=== PATIENT | female | born 1940 | race Caucasian/White ===

== ENCOUNTER → 2018-01-09 10:21 | Outpatient (CLI) | payer MEDICARE, OTHER, SELFPAY ==
--- NOTE | 2018-01-09 10:28 | MM_ITS ---
. MM Dig screening mamm BI w/CAD CAD Screening ORDERING PHYSICIAN : Teddy Evans MD PATIENT AGE: 77 years GENDER: Femal INDICATION: Routine screening. 77-year-old. No hormones. No new complaints Family history. Paternal aunt with breast cancer TECHNIQUE: Standard CC and MLO images were obtained. R2 CAD reviewed. COMPARISON: Previous mammograms: December 2016; November 20142015October 2012 FINDINGS: Moderate density breast for age. We continue see stable mild asymmetry but no significant new findings. Scattered benign calcifications bilateral RIGHT BREAST: No significant new findings The asymmetric area of what appears to be fibroglandular density towards lateral right breast is remain stable since multiple previous studies dating back to 2012 & 2011 LEFT BREAST:Left breast. Asymmetric area of minor tissue towards axillary tail is been present since 2011. . Metallic marker from Previous percutaneous biopsy at 1:00 left breast performed in 2009 noted. Associated mild architectural in this region stable IMPRESSION: ===== Stable bilateral mammogram with no significant new findings. Moderately dense breasts for age. Bilateral follow-up one year recommended BI-RADS Category: 2 Benign Finding(s) RECOMMENDED FOLLOW-UP: 1YR - 1 YEAR FOLLOW-UP (A letter has been sent to the patient regarding results of the study.)
== END ==
PROVIDERS: Family Provider Internal Medicine Adolescent Medicine; PCP Internal Medicine Adolescent Medicine; Visit Provider Internal Medicine Adolescent Medicine
DX: Z12.31 Encounter for screening mammogram for malignant neoplasm of breast (principal)
CPT/HCPCS: 77067

== ENCOUNTER → 2018-03-14 12:14 | Outpatient (CLI) | payer MEDICARE, OTHER, SELFPAY ==
--- NOTE | 2018-03-14 12:22 | XR_ITS ---
XR shoulder LT min 2V COMPARISON: Right shoulder 07/29/2017 HISTORY: Left shoulder pain TECHNIQUE: 3 views left shoulder FINDINGS: There is mild spurring of the AC joint superiorly and inferiorly. Humeral head rides somewhat high in the glenoid and there is mild spurring the greater tuberosity and the combination of findings suggest a mild disposition to impingement syndrome. There is a somewhat prominent bicipital groove with mildly sclerotic borders. There are no soft tissue calcifications. IMPRESSION: Mild degenerative changes of the AC joint and humeral head with a combination suggesting predisposition to some degree of impingement syndrome
== END ==
PROVIDERS: PCP Family Medicine; Visit Provider Family Medicine
DX: M25.512 Pain in left shoulder (principal)
CPT/HCPCS: 73030

== ENCOUNTER → 2018-03-25 16:04 | Outpatient (CLI) | payer MEDICARE, OTHER, SELFPAY ==
--- NOTE | 2018-03-25 16:08 | XR_ITS ---
EXAM: XR lumbar spine min 4V HISTORY: ITS.REASON: LOW BACK PAIN ORDERING PHYSICIAN: Nicol Lopez MD PATIENT AGE: 77 years COMPARISON: 01/19/2011 FINDINGS: There has been kyphoplasty at T11, T12, and L2. There is kyphosis at T11 and T12 with mild old wedge compression changes. Anterior osteophytes are present at L2 and L3. There is 4 mm anterolisthesis of L4 with degenerative disc disease at L4-L5. Transitional segment is present at the lumbosacral junction with anterior osteophytes. There are facet hypertrophic changes at L4-L5 and S1. IMPRESSION: 1. Prior kyphoplasty at T11-T12 and L2 with mild wedging of T11 and T12. 2. Lumbar spondylosis with degenerative disc disease, facet arthritic change and osteophyte formation as described above. 3. No acute finding
== END ==
PROVIDERS: PCP Family Medicine; Visit Provider Family Medicine
DX: M54.5 Low back pain (principal)
CPT/HCPCS: 72110

== ENCOUNTER 2018-05-19 13:00 | Outpatient (RCR) | payer MEDICARE, OTHER, SELFPAY | END 2018-05-19 13:01 | disposition home or self-care (01) | LOC: OT 13:00 | PROVIDERS: Family Provider Internal Medicine Adolescent Medicine; PCP Family Medicine; Visit Provider Family Medicine | DX: M25.512 Pain in left shoulder (principal); M19.90 Unspecified osteoarthritis, unspecified site | CPT/HCPCS: 97014; 97110; 97166; G0283 ==

== ENCOUNTER 2018-05-27 14:00 | Outpatient (RCR) | payer MEDICARE, OTHER, SELFPAY ==
--- NOTE | 2018-04-14 11:49 | [facility].PTOPWND ---
Rehab Outpt Wound Evaluation Rehab OP Wound Evaluation Start: 04/14/18 10:15 Freq: Status: Active Protocol: Document 04/14/18 11:41 PHOTERRELL (Rec: 04/14/18 11:48 PHORNE [id number]) Electronically Signed By Oskar Tineo, PT 04/14/18 11:41 Subjective/History History History Pt is 77 yowf who presents with c/o tomas LE edema x ~ 3 wks with insidious onset of symptoms. Pt has had similar symptoms previously with decreased edema after treatment by therapy. She has hx of CVI, HTN, and Mitral valve prolapse. She reports intermittent pain and tingling in her lower legs and continued tenderness to palpation throughout the same area. Lymphedema Eval Classification of Lymphedema Secondary Lymphedema Yes: due to CVI Stemmer's sign Stemmer's Sign no Stage of Lymphedema Lymphedema stages Stage I (Pitting edema, reduces w/ elevation, no fibrosis) Skin Changes Dry Skin Yes Taut, Shiny Skin Yes Discoloration of Skin Yes Pain Scale Pain Scale (0-10) 5 Affected Extremities Areas Affected by Lymphedema/Edema Right Lower Extremity Left Lower Extremity Lower Extremity Measurements Right MTP Measurement (cm) 22.7 Heel Measurement (cm) 31.0 10 cm Proximal to Lateral Malleoli 27.9 Measurement (cm) 20 cm Proximal to Lateral Malleoli 29.8 Measurement (cm) 30 cm Proximal to Lateral Malleoli 39.7 Measurement (cm) 40 cm Proximal to Lateral Malleoli 44.3 Measurement (cm) Left MTP Measurement (cm) 22.4 Heel Measurement (cm) 31.7 10 cm Proximal to Lateral Malleoli 27.6 Measurement (cm) 20 cm Proximal to Lateral Malleoli 29.5 Measurement (cm) 30 cm Proximal to Lateral Malleoli 37.7 Measurement (cm) 40 cm Proximal to Lateral Malleoli 41.4 Measurement (cm) Manual Lymphatic Drainage Treatment Area MLD Treatment Area Right Lower Extremity Left Lower Extremity Wound Problems/Impairments Impairments Problems/Impairmments Palpation Tenderness Impaired Walking Increased Edema Lymphedema Presen
== END 2018-05-27 14:01 | disposition home or self-care (01) ==
LOC: PT 14:00
PROVIDERS: Family Provider Internal Medicine Adolescent Medicine; PCP Family Medicine; Visit Provider Family Medicine
DX: I89.0 Lymphedema, not elsewhere classified (principal); R60.0 Localized edema
CPT/HCPCS: 97140; 97162; 97760

== ENCOUNTER → 2018-07-01 11:14 | Outpatient (POV) | payer MEDICARE, OTHER, SELFPAY | PROVIDERS: Family Provider Internal Medicine Adolescent Medicine; PCP Family Medicine; Visit Provider Dermatology | DX: Z00.00 Encounter for general adult medical examination without abnormal findings (principal) ==

== ENCOUNTER → 2018-10-16 09:58 | Outpatient (CLI) | payer MEDICARE, OTHER, SELFPAY ==
--- NOTE | 2018-10-16 10:03 | XR_ITS ---
XR knee RT 4V HISTORY: Knee pain ITS.REASON: 4 views weightbearing ORDERING PHYSICIAN: Abdi De La Torre MD PATIENT AGE: 78 years COMPARISON: 07/01/2017 FINDINGS: There are mild osteoarthritic changes of the medial compartment and patellofemoral joint. There is some nonspecific subchondral sclerosis and lucency involving the medial aspect of the posterior patella. No acute fracture or dislocation. 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 Nonspecific subchondral lucency and sclerosis of the medial aspect of the patella which may be better evaluated with MRI or CT if clinically warranted
== END ==
PROVIDERS: PCP Family Medicine; Visit Provider Orthopaedic Surgery
DX: M17.11 Unilateral primary osteoarthritis, right knee (principal)
CPT/HCPCS: 73564